=== PATIENT | male | born 1960 | race Two or more races ===

== ENCOUNTER 2019-06-12 07:40 | Inpatient (IN) | payer MEDICAID ==
[~2019-06-12] VITALS: Ht 160 cm; Wt 94.3 kg
[2019-06-12] MEDS ORDERED: PANTOPRAZOLE 40 MG VIAL IV ONE (08:00)
[2019-06-12] MEDS ORDERED: IV NS 0.9% 1,000 ML BAG IV ONE ×3 (08:00→09:30)
[2019-06-12] MEDS ORDERED: ONDANSETRON HCL/PF 4 MG/2 ML VIAL IVP ONE (08:00)
--- NOTE | 2019-06-12 08:00 | NUR ---
patient BIBRA from home, c/o RUQ pain with nausea vomiting, s/p alcohol use. On room air, breathing evenly and unlabored. connected to the monitor and pulse ox. kept comfortable, will continue to monitor accordingly.
[2019-06-12] MEDS ORDERED: ONDANSETRON HCL/PF 4 MG/2 ML VIAL ONE (08:23)
[2019-06-12] MEDS ORDERED: PANTOPRAZOLE 40 MG VIAL ONE (08:23)
[2019-06-12 08:26] LABS: BASOPHILS # (AUTO) 0.1 /CMM (0.0-0.2); BASOPHILS % (AUTO) 0.5 % (0.0-2.0); EOSINOPHILS % (AUTO) 0.1 % (0.0-6.0); HEMATOCRIT 42 % (39-51); HEMOGLOBIN 13.4 g/dL (13.5-17.5); LYMPHOCYTES # (AUTO) 1.2 /CMM (0.8-4.8); LYMPHOCYTES % (AUTO) 5.1 % (20.0-44.0); MEAN CORPUSCULAR HGB CONC 32 g/dl (31.0-36.0); MEAN CORPUSCULAR VOLUME 106 fL (80-96); MONOCYTES # (AUTO) 1.6 /CMM (0.1-1.30); MONOCYTES % (AUTO) 6.9 % (2.0-12.0); NEUTROPHILS # (AUTO) 20.2 /CMM (1.8-8.9); NEUTROPHILS % (AUTO) 87.4 % (43.0-81.0); PLATELET COUNT (AUTO) 209 /CMM (150-450); RED BLOOD CELL COUNT(AUTO) 4.01 MIL/uL (4.5-6.0); WHITE BLOOD COUNT (AUTO) 23.1 K/uL (4.3-11.0)
[2019-06-12] MEDS ORDERED: METOCLOPRAMIDE HCL 10 MG/2 ML VIAL IV ONE (08:30)
[2019-06-12 08:42] LABS: ALBUMIN 3.7 g/dL (3.4-5.0); BILIRUBIN,DIRECT 0.2 mg/dL (0.0-0.2); BILIRUBIN,TOTAL 0.8 mg/dL (0.2-1.0); CALCIUM, SERUM 8.5 mg/dL (8.5-10.1); CREATININE 2.6 mg/dL (0.6-1.3); POTASSIUM 4.7 mmol/L (3.5-5.1); TOTAL PROTEIN, SERUM 8.1 g/dL (6.4-8.2)
[2019-06-12 08:46] LABS: PHOSPHORUS 9.8 mg/dL (2.5-4.9)
[2019-06-12 08:47] LABS: MAGNESIUM 2.1 mg/dL (1.8-2.4)
[2019-06-12] MEDS ORDERED: METOCLOPRAMIDE HCL 10 MG/2 ML VIAL ONE (08:48)
[2019-06-12 09:03] LABS: APPEARANCE,URINE Clear (CLEAR); BILIRUBIN,URINE Negative (NEGATIVE); BLOOD, URINE Trace-lysed Ery/uL (NEGATIVE); COLOR,URINE Yellow (YELLOW); KETONES,URINE 15 (NEGATIVE); LEUKOCYTE ESTERASE ,URINE Negative (NEGATIVE); NITRITE, URINE Negative (NEGATIVE); PROTEIN,URINE 30 mg/dl (NEGATIVE); UGLUCOSE Negative (NEGATIVE); UROBILINOGEN,URINE 0.2 EU/dL (0.2)
[2019-06-12 09:18] LABS: BACTERIA,URINE Moderate /HPF (None Seen); RBC,URINE 0-2 /HPF (0-2); SQUAMOUS EPITHELIAL CELL,UR Few /HPF (None Seen); WBC,URINE 0-2 /HPF (0-3)
[2019-06-12] MEDS ORDERED: PIPERACILLIN /TAZOBACTAM 3.375 G in IV D5W 50 ML IV ONE (09:30)
[2019-06-12 09:39] LABS: ABG OXYGEN SATURATION 67.2 % (92.0-98.5); ABG PCO2 27.7 mmHg (35.0-45.0); ABG PH 7.069 (7.350-7.450); ABG PO2 38.6 mmHg (75.0-100.0); COHb 0.3 % (0.5-1.5); MetHb 0.7 % (0.0-1.5); O2Hb 66.5 % (94.0-97.0); SITE, ABG Other; VENT MODE, BG VBG ROOM AIR
[2019-06-12] MEDS ORDERED: INS (REG) DRIP 100 U/100 ML NS IV PRN ×2 (10:00)
[2019-06-12] MEDS ORDERED: IV NS W/20MEQ KCL 1L IV ONE ×2 (10:00)
[2019-06-12 10:32] LABS: MAGNESIUM 1.9 mg/dL (1.8-2.4); PHOSPHORUS 7.1 mg/dL (2.5-4.9)
--- NOTE | 2019-06-12 12:02 | NUR ---
report given to Galina HASSAN for tanisha.
[2019-06-12 12:15] LABS: MAGNESIUM 1.7 mg/dL (1.8-2.4); PHOSPHORUS 4.1 mg/dL (2.5-4.9)
[2019-06-12] MEDS ORDERED: ENOXAPARIN SODIUM 40 MG/0.4 ML DISP.SYRIN SQ SCH (13:30)
[2019-06-12] MEDS ORDERED: MAG HYDROX/AL HYDROX/SIMETH 30 ML UDC PO PRN (13:30)
[2019-06-12] MEDS ORDERED: MAGNESIUM HYDROXIDE 30 ML UDC PO PRN (13:30)
[2019-06-12] MEDS ORDERED: ZOLPIDEM TARTRATE 5 MG TABLET PO PRN (13:30)
[2019-06-12] MEDS ORDERED: ONDANSETRON HCL/PF 4 MG/2 ML VIAL IVP PRN (13:30)
[2019-06-12] MEDS ORDERED: DEXTROSE 50%-WATER 50 ML DISP.SYRIN IV PRN (13:30)
[2019-06-12] MEDS ORDERED: HYDROCODONE/APAP 5/325MG 1 EACH TABLET PO PRN (13:30)
[2019-06-12] MEDS ORDERED: LORAZEPAM INJ 2 MG/ML VIAL IV PRN (13:30)
[2019-06-12] MEDS ORDERED: Z GUARD REMEDY 2 OZ OINT TP PRN (13:30)
[2019-06-12] MEDS ORDERED: ACETAMINOPHEN 325 MG TABLET PO PRN (13:30)
--- NOTE | 2019-06-12 14:13 | NUR ---
report given to Sandi HASSAN for tanisha.
--- NOTE | 2019-06-12 14:40 | NUR ---
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 PT WITH ADMITTING DX OF LACTIC ACIDOSIS, ACUTE ON CHRONIC KIDNEY DZ, ACUTE HYPERCAPNEIC RESPIRATORY FAILURE, DKA, AND R/O CHOLECYSTITIS. PT HAS NO SIGNIFICANT MEDICAL HX. ALTHOUGH HE HAS A HX OF HERNIA REPAIR. PT IS AOX4. AMBULATORY. NO CARDIAC OR RESP DISTRESS NOTED. NO SOB NOTED. SATURATING AT 99% ON ROOM AIR. IV ACCESS NOTED ON L AC G18 AND R AC G18. NO S/SX OF INFECTION OR INFILTRATION NOTED. IV FLUIDS RUNNING. NS @ 125ML/HR. PT REFUSED BODY CHECK AT THIS TIME. PT WILL BE HAVING A HIDA SCAN TOMORROW. PT ON CLEAR LIQUID DIET. WILL ENDORSE TO ONCOMING SHIFT TO KEEP PT NPO AFTER MIDNIGHT. BRENDA PAPPAS IS ADMITTING AND INPUTTED ALL ADMISSION ORDERS. WILL CONT TO MONITOR.
--- NOTE | 2019-06-12 14:40 | NUR ---
Wheeled patient via gurney accompanied by RN and emt in no distress, Sandi RN at bedside to assume care.
[2019-06-12] MEDS: CHLORDIAZEPOXIDE HCL 25 MG CAPSULE PO SCH ×2 (15:06→21:44)
[2019-06-12] MEDS: ENOXAPARIN SODIUM 30 MG/0.3 ML DISP.SYRIN SQ SCH (15:08)
[2019-06-12 16:00] VITALS: BP 143/78
[2019-06-12] MEDS: BLOOD SUGAR DIAGNOSTIC 1 EACH STRIP IN SCH ×2 (17:03→21:44)
[2019-06-12] MEDS: IV NS 0.9% 1,000 ML IV PRN (17:06)
[2019-06-12] MEDS: INSULIN REGULAR, HUMAN 100 UNIT/ML 3 ML VIAL SQ PRN ×2 (17:45→22:05)
[2019-06-12] MEDS: PIPERACILLIN /TAZOBACTAM 2.25 G in IV D5W 50 ML IV SCH ×2 (17:46→23:31)
--- NOTE | 2019-06-12 18:19 | NUR ---
POULTRY CLEANER CLOSING PT IN BED. AWAKE, ALERT AND ORIENTED X 4. AMBULATORY. NO CARDIAC OR RESP DISTRESS NOTED. NO SOB NOTED. SATURATING AT 99% ON ROOM AIR. ON CARDIAC TELE MONITOR WITH NSR. IV ACCESS NOTED ON L AC G18 AND R AC G18. NO S/SX OF INFECTION OR INFILTRATION NOTED. IV FLUIDS RUNNING. NS @ 125ML/HR. PT WILL BE HAVING A HIDA SCAN TOMORROW. PT ON CLEAR LIQUID DIET. WILL ENDORSE TO ONCOMING SHIFT TO KEEP PT NPO AFTER MIDNIGHT. PT APPEARS TO BE HAVING WITHDRAWAL SYMPTOMS FROM ALCOHOL. HE IS SHAKY, A BIT RESTLESS BUT HE IS PLEASANT. HE TOLD ME THAT HE WENT BACK TO DRINKING AGAIN ABOUT 6 MONTHS AGO AND ABRUPTLY STOPPED ABOUT 4 DAYS AGO BECAUSE HE STARTED FEELING ABD PAIN. HE STATES THAT HE WANTS TO QUIT DRINKING. PT REFUSED BODY CHECK AGAIN. I ASKED HIM 3X AND ASKED IF I COULD LOOK AT HIS BACK/BOTTOM, BUT HE REFUSES. HE SAID, "NO. ITS OKAY. IM OKAY." WILL ENDORSE TO ONCOMING SHIFT.
[2019-06-12 19:30] VITALS: BP 133/88
--- NOTE | 2019-06-12 19:48 | NUR ---
MAJOR CASE DETECTIVE NOTES PATIENT IN BED, AWAKE, WATCHING TV. ALERT AND ORIENTED X 4. BREATHING EVEN AND UNLABORED ON ROOM AIR. SHOWS NO SIGNS OF ACUTE RESPIRATORY DISTRESS, NO ACUTE PAIN. IV ON L AC 10G RUNNING NS AT 75ML/HR. SHOWS NO SIGNS OF INFILTRATION, NO REDNESS. PATIENT IS TO BE NPO AFTER MIDNIGHT. SAFETY PRECAUTIONS IN PLACE. BED IN LOWEST POSITION, LOCKED, AND CALL LIGHT KEPT WITHIN REACH. WILL CONTINUE TO MONITOR.
[2019-06-12 20:00] VITALS: BP 133/88
[2019-06-13] VITALS: BP 128/76
[2019-06-13] MEDS: IV NS 0.9% 1,000 ML IV PRN ×2 (02:50→16:45)
[2019-06-13 04:00] VITALS: BP 148/78
[2019-06-13] MEDS: CHLORDIAZEPOXIDE HCL 25 MG CAPSULE PO SCH ×3 (04:42→21:09)
[2019-06-13] MEDS: PIPERACILLIN /TAZOBACTAM 2.25 G in IV D5W 50 ML IV SCH ×4 (06:07→23:58)
[2019-06-13] MEDS: BLOOD SUGAR DIAGNOSTIC 1 EACH STRIP IN SCH ×4 (06:27→21:15)
[2019-06-13] MEDS: INSULIN REGULAR, HUMAN 100 UNIT/ML 3 ML VIAL SQ PRN ×3 (06:28→21:15)
--- NOTE | 2019-06-13 06:40 | NUR ---
FROZEN FOOD SELECTOR NOTES PATIENT IN BED, ASLEEP, ALERT AND ORIENTED X 4. BREATHING EVEN AND UNLABORED ON ROOM AIR. SHOWS NO SIGNS OF ACUTE RESPIRATORY DISTRESS, NO ACUTE PAIN. IV ON L AC 18G RUNNING NS AT 75ML/HR. SHOWS NO SIGNS OF INFILTRATION, NO REDNESS. PATIENT KEPT NPO AFTER MIDNIGHT. TELE MONITOR SR 70'S. ALL DUE MEDICATIONS GIVEN. SAFETY PRECAUTIONS IN PLACE. BED IN LOWEST POSITION, LOCKED, AND CALL LIGHT KEPT WITHIN REACH. WILL ENDORSE TO ONCOMING NURSE.
--- NOTE | 2019-06-13 07:40 | NUR ---
RUBY ON RAILS ENGINEER NOTES PATIENT AWAKE IN BED, NO RESPIRATORY DISTRESS NOTED, NO C/O PAIN AT THIS TIME. PATIENT ON FEATHER EDGER SR 79, SKIN WARM TO TOUCH, IV ACCESS SITES INTACT AND PATENT, IV NS INFUSING AT 125ML/HR. PATIENT ON NPO, WAITING FOR HIDA SCAN PROCEDURE. PATIENT'S NEEDS ATTENDED, BED ON LOWEST LOCKED POSITION, CALL LIGHT WITHIN REACH. WILL CONTINUE TO MONITOR.
[2019-06-13] MEDS: ENOXAPARIN SODIUM 30 MG/0.3 ML DISP.SYRIN SQ SCH (08:29)
[2019-06-13 16:00] VITALS: BP 147/88
[2019-06-13 16:57] LABS: BASOPHILS % (AUTO) 0.4 % (0.0-2.0); EOSINOPHILS % (AUTO) 0.9 % (0.0-6.0); HEMATOCRIT 39 % (39-51); HEMOGLOBIN 13.4 g/dL (13.5-17.5); LYMPHOCYTES # (AUTO) 1.2 /CMM (0.8-4.8); LYMPHOCYTES % (AUTO) 14.1 % (20.0-44.0); MEAN CORPUSCULAR HGB CONC 34 g/dl (31.0-36.0); MEAN CORPUSCULAR VOLUME 98 fL (80-96); MONOCYTES # (AUTO) 0.4 /CMM (0.1-1.30); MONOCYTES % (AUTO) 4.8 % (2.0-12.0); NEUTROPHILS % (AUTO) 79.8 % (43.0-81.0); RED BLOOD CELL COUNT(AUTO) 3.99 MIL/uL (4.5-6.0); WHITE BLOOD COUNT (AUTO) 8.8 K/uL (4.3-11.0)
[2019-06-13 17:07] LABS: PLATELET COUNT (AUTO) 101 /CMM (150-450)
[2019-06-13 17:22] LABS: CALCIUM, SERUM 8.4 mg/dL (8.5-10.1); CREATININE 1.2 mg/dL (0.6-1.3); POTASSIUM 3.3 mmol/L (3.5-5.1)
[2019-06-13 17:27] LABS: CALCIUM, SERUM 8.3 mg/dL (8.5-10.1); CREATININE 1.3 mg/dL (0.6-1.3); MAGNESIUM 1.8 mg/dL (1.8-2.4); PHOSPHORUS 1.3 mg/dL (2.5-4.9); POTASSIUM 3.3 mmol/L (3.5-5.1)
[2019-06-13 17:28] LABS: ALBUMIN 3.1 g/dL (3.4-5.0); BILIRUBIN,TOTAL 2.3 mg/dL (0.2-1.0); TOTAL PROTEIN, SERUM 6.7 g/dL (6.4-8.2)
--- NOTE | 2019-06-13 19:10 | NUR ---
RN MS OPENING NOTES RECEIVED PATIENT IN BED AWAKE ALERT AND ORIENTED X4, RESPIRATIONS EVEN AND UNLABORED WITH EQUAL RISE AND FALL OF CHEST, DENIES ANY PAIN OR DISCOMFORT AT THIS TIME, IV SITE TO LEFT AC #18 AND RIGHT AC #18G INTACT AND PATENT, NO REDNESS, NO INFILTRATION PRESENT, IVF RUNNING ORDERED, ORIENTED TO STAFF AND CALL LIGHT AND KEPT WITHIN REACH, SAFETY PRECAUTIONS IN PLACE, LOW BED AND LOCKED, ALL NEEDS ATTENDED AT THIS TIME, WILL CONTINUE TO MONITOR AND ATTEND TO NEEDS.
--- NOTE | 2019-06-13 19:34 | NUR ---
M/S RN NOTES PATIENT RESTING IN BED, NO RESPIRATORY DISTRESS NOTED, NO C/O PAIN AT THIS TIME. PATIENT COMFORTABLE. SKIN WARM TO TOUCH, IV ACCESS SITE INTACT AND PATENT. PATIENT'S NEEDS ATTENDED, BED ON LOWEST LOCKED POSITION, CALL LIGHT WITHIN REACH. WILL ENDORSE TO ONCOMING NURSE.
[2019-06-13 20:00] VITALS: BP 149/91
[2019-06-13 20:48] VITALS: BP 149/91
[2019-06-13] MEDS: Potassium Phosphate meq 11 MEQ in IV D5W 100 ML IV SCH (20:55)
[2019-06-14] MEDS: Potassium Phosphate meq 11 MEQ in IV D5W 100 ML IV SCH (00:32)
[2019-06-14] MEDS: PIPERACILLIN /TAZOBACTAM 2.25 G in IV D5W 50 ML IV SCH ×2 (05:31→11:12)
[2019-06-14] MEDS: CHLORDIAZEPOXIDE HCL 25 MG CAPSULE PO SCH ×2 (05:33→13:04)
[2019-06-14] MEDS: BLOOD SUGAR DIAGNOSTIC 1 EACH STRIP IN SCH ×2 (06:07→12:23)
[2019-06-14] MEDS: INSULIN REGULAR, HUMAN 100 UNIT/ML 3 ML VIAL SQ PRN ×2 (06:07→12:25)
--- NOTE | 2019-06-14 06:42 | NUR ---
RN MS CLOSING NOTES PATIENT IN BED AWAKE ALERT AND ORIENTED X4, RESPIRATIONS EVEN AND UNLABORED WITH EQUAL RISE AND FALL OF CHEST, DENIES ANY PAIN OR DISCOMFORT AT THIS TIME, IV SITE TO LEFT AC #18 AND RIGHT AC #18G INTACT AND PATENT, NO REDNESS, NO INFILTRATION PRESENT, IVF RUNNING ORDERED, ALL MEDS GIVEN ORDERED, NO ADVERSE REACTIONS, CALL LIGHT KEPT WITHIN REACH, SAFETY PRECAUTIONS IN PLACE, LOW BED AND LOCKED, ALL NEEDS ATTENDED AT THIS TIME, WILL CONTINUE TO MONITOR AND ATTEND TO NEEDS AND ENDORSE TO NEXT SHIFT. NOTED WITH BUTTOCKS APPEARS LIKE SCRATCHES AND ABD FOLD, SITE CLEANSED BARRIER CREAM PROVIDED , [facility] PENDING PICTURES TAKEN.
[2019-06-14 06:51] LABS: BASOPHILS % (AUTO) 0.9 % (0.0-2.0); EOSINOPHILS % (AUTO) 2.5 % (0.0-6.0); HEMATOCRIT 38 % (39-51); HEMOGLOBIN 12.9 g/dL (13.5-17.5); LYMPHOCYTES # (AUTO) 1.3 /CMM (0.8-4.8); LYMPHOCYTES % (AUTO) 24.8 % (20.0-44.0); MEAN CORPUSCULAR HGB CONC 34 g/dl (31.0-36.0); MEAN CORPUSCULAR VOLUME 98 fL (80-96); MONOCYTES # (AUTO) 0.5 /CMM (0.1-1.30); MONOCYTES % (AUTO) 9.8 % (2.0-12.0); NEUTROPHILS # (AUTO) 3.4 /CMM (1.8-8.9); PLATELET COUNT (AUTO) 113 /CMM (150-450); WHITE BLOOD COUNT (AUTO) 5.4 K/uL (4.3-11.0)
[2019-06-14 07:17] LABS: CALCIUM, SERUM 8.5 mg/dL (8.5-10.1); CREATININE 0.9 mg/dL (0.6-1.3); MAGNESIUM 1.7 mg/dL (1.8-2.4); PHOSPHORUS 2.1 mg/dL (2.5-4.9); POTASSIUM 3.2 mmol/L (3.5-5.1)
[2019-06-14 09:08] VITALS: BP 149/94
[2019-06-14] MEDS: ENOXAPARIN SODIUM 30 MG/0.3 ML DISP.SYRIN SQ SCH (09:31)
[2019-06-14] MEDS: POTASSIUM CHLORIDE 20 MEQ TAB.PRT.SR PO SCH ×2 (10:43→11:12)
--- NOTE | 2019-06-14 10:43 | NUR ---
WOUND CARE CONSULT: PT PRESENTS AMBULATORY AND CONTINENT BUT HAS SOME RASHES ON GROIN FOLDS AND BUTTOCKS, PRESENT ON ADMISSION. RECOMMENDATIONS MADE FOR SKIN PROTECTION AND CARE DISCUSSED WITH NURSING STAFF. WILL SEE PRN. CURRENT RUBEN SCORE IS 23. Addendum: 06/14/19 at 1044 by JEANCARLOS AMIN WNDNU Amended: Links added.
[2019-06-14] MEDS: IV NS 0.9% 1,000 ML IV PRN (11:33)
[2019-06-14] MEDS: Magnesium 1GM/D5W 100ML PREMIX 100 ML IV SCH ×2 (12:28→13:38)
[2019-06-14] MEDS ORDERED: K PHOS NEUTRAL 250 MG TABLET PO ONE (14:00)
[2019-06-14 15:47] VITALS: BP_SYST 149; BP_SYST 152; BP_DIAS 87; BP_DIAS 94
[2019-06-14] MEDS ORDERED: CLOTRIMAZOLE 1% 15 GM TUBE TP SCH (17:00)
--- NOTE | 2019-06-14 17:06 | NUR ---
MS/RN NOTES PATIENT IS ALERT AND ORIENTED X4. PATIENT DENIES PAIN AT THIS TIME. IN ROOM AIR AND SATURATION IS AT 98%. RESPIRATION REGULAR AND UNLABORED. THE PATIENT IN NO APPARENT DISTRESS. SEEN AND EXAMINED BY MD WITH ORDERS MADE AND CARRIED OUT. PATIENT WAS GIVEN DISCHARGED INSTRUCTIONS AND PATIENT VERBALIZED UNDERSTANDING. THE PATIENT LEFT THE HOSPITAL IN STABLE CONDITION, ACCOMPANIED BY PATEL THE SON ON A PRIVATE CAR.
== END 2019-06-14 16:40 | disposition home or self-care (01) | DRG 775 ==
LOC: ER 07:45 → ICU 11:53 → TELE 14:28 → MED 06-13 13:53
PROVIDERS: ADMIT Nurse Practitioner Acute Care; ATTEND Nurse Practitioner Acute Care
DX: F10.239 Alcohol dependence with withdrawal, unspecified (principal); J96.02 Acute respiratory failure with hypercapnia; N17.0 Acute kidney failure with tubular necrosis; K70.30 Alcoholic cirrhosis of liver without ascites; E87.2 Acidosis; E86.9 Volume depletion, unspecified; I12.9 Hypertensive chronic kidney disease with stage 1 through stage 4 chronic kidney disease, or unspecified chronic kidney disease; N18.9 Chronic kidney disease, unspecified; D72.829 Elevated white blood cell count, unspecified; E83.42 Hypomagnesemia; E83.39 Other disorders of phosphorus metabolism; E11.22 Type 2 diabetes mellitus with diabetic chronic kidney disease; Y90.0 Blood alcohol level of less than 20 mg/100 ml
CPT/HCPCS: 36415; 36600; 71045-TC; 78226; 80048-TC; 80053-TC; 80061-TC; 80076-TC; 80305; 81000-TC; 82962-TC; 83605-TC; 83690-TC; 83735-TC; 84100-TC; 85025-TC; 87040-TC; 87081-TC; 87086-TC; 97116-TC; 97530-TC; A9537; C9113; G0378; G0480; J1650; J1815; J2405; J2543; J2765; J3475; J3480; J3490; J7030; J7060